=== PATIENT | female | born 1965 | race Hispanic/Latino ===

== ENCOUNTER 2020-11-24 17:13 | Emergency (ER) | payer MEDICARE ==
[~2020-11-24] VITALS: Ht 165.1 cm; Wt 81.6 kg
[2020-11-24] MEDS ORDERED: DEXAMETHASONE 4 MG TAB PO STA (17:53)
[2020-11-24] MEDS ORDERED: PROVENTIL HFA6.7 GM INH (17:54)
== END 2020-11-24 20:20 | disposition home or self-care (01) ==
LOC: ER 17:55
DX: R50.9 Fever, unspecified (principal); R05 Cough; J40 Bronchitis, not specified as acute or chronic
CPT/HCPCS: 71045; 99283; J8540